=== PATIENT | male | born 1960 | race Caucasian/White ===

== ENCOUNTER 2020-04-07 11:00 | Outpatient (CLI) | payer BC, SELFPAY ==
--- NOTE | 2020-04-07 08:30 | DI.RAD_ITS ---
EXAM: XR ELBOW RT COMPLETE CLINICAL HISTORY: R elbow pain. TECHNIQUE: 2D digital imaging was performed. COMPARISON: No exams were available for comparison FINDINGS: BONES: No acute fracture is present. No bony destructive lesion is seen. There is a small subchondra l cyst in the capitellum. JOINTS: The elbow is normally aligned. No joint effusion is seen. SOFT TISSUE: Normal. IMPRESSION: Unremarkable radiographs of the right elbow. DATA REPOSITORY: RADIATION DOSE DELIVERED:
== END 2020-04-07 11:20 ==
PROVIDERS: PCP Family Medicine; Visit Provider Physician Assistant
DX: M25.521 Pain in right elbow (principal)
CPT/HCPCS: 73080

== ENCOUNTER 2021-01-27 10:45 | Outpatient (CLI) | payer BC, SELFPAY ==
--- NOTE | 2021-01-27 10:51 | DI.RAD_ITS ---
Exam(s) XR LUMBAR SPINE COMPLETE EXAM: XR LUMBAR SPINE COMPLETE CLINICAL HISTORY: eval low back pain and radiculopathy. TECHNIQUE: 2D digital imaging was performed. COMPARISON: No exams were available for comparison FINDINGS: BONES: No fracture or destructive lesion. Vertebral bodies are unremarkable. Mild facet hypertrophy identified. DISKS: Intervertebral disc spaces are maintained. Small endplate osteophytes. ALIGNMENT: Lumbar spinal alignment is within normal limits. SOFT TISSUE: Mild aortic calcification. IMPRESSION: Mild degenerative changes greatest at L4-5 and L5-S1. DATA REPOSITORY: RADIATION DOSE DELIVERED:
== END 2021-01-27 10:46 | disposition home or self-care (01) ==
LOC: DIORS 10:45
PROVIDERS: PCP Family Medicine; Referring Provider Family Medicine; Visit Provider Student in an Organized Health Care Education/Training Program
DX: M54.16 Radiculopathy, lumbar region (principal); M47.27 Other spondylosis with radiculopathy, lumbosacral region
CPT/HCPCS: 72110

== ENCOUNTER 2021-02-21 01:09 | Outpatient (CLI) | payer BC, SELFPAY ==
--- NOTE | 2021-02-21 06:45 | DI.MRI_ITS ---
Exam(s) MR LUMBAR SPINE WO EXAM: MR LUMBAR SPINE WO CLINICAL HISTORY: PAIN,lumbar radiculopathy, m54.16. TECHNIQUE: Multiplanar multisequence MRI of the Lumbar spine was performed. COMPARISON: CR XR LUMBAR SPINE COMPLETE from 01/27/2021 CR XR LUMBAR SPINE COMPLETE from 01/27/2021 FINDINGS: Bones: The last intervertebral disc space is designated the L5/S1 level for the numbering purpose of this examination. The vertebral body heights are well maintained. Alignment is satisfactory. There are mild degenerative endplate signal changes seen at L2-3, L4-5 and L5-S1. There is disc desiccation at L4-5 and L5-S1. There is a round area of decreased signal on both the T1 and T2 weighted images in the L3 vertebral body. There is no abnormal signal seen on the STIR images. Cord: The conus tip ends at the T12 level. It is of normal size and signal intensity. T12-L1: No disc herniations or bulges are present. No central spinal canal or neural foraminal stenos is. L1-2: No disc herniations or bulges are present. No central spinal canal or neural foraminal stenosis . L2-3: No disc herniations or bulges are present. No central spinal canal or neural foraminal stenosis . L3-4: No disc herniations or bulges are present. No central spinal canal or neural foraminal stenosis . L4-5: There is a moderate-sized left lateral disc herniation. There is mild narrowing of the central spinal canal. No right neural foraminal stenosis.Moderately severe left neural foraminal stenosis i s present. L5-S1: There is a small central disc herniation at L5-S1. No central spinal canal or neural foraminal stenosis. Soft tissues: The visualized SI joints and sacrum are well maintained. The paraspinal soft tissues ar e unremarkable. IMPRESSION: 1. Left lateral disc herniation at L4-5 causing moderately severe left neural foraminal stenosis. Th ere is also mild narrowing of the central spinal canal at this level. 2. Small central disc herniation at L5-S1. No central spinal canal or neural foraminal stenosis resu lts. 3. Nonspecific hypointense round signal in the L3 vertebral body. A postcontrast MRI of the lumbar s pine should be considered for further evaluation. DATA REPOSITORY:
== END 2021-02-21 01:29 ==
PROVIDERS: PCP Family Medicine; Visit Provider Student in an Organized Health Care Education/Training Program
DX: M54.16 Radiculopathy, lumbar region (principal); M51.16 Intervertebral disc disorders with radiculopathy, lumbar region; M51.17 Intervertebral disc disorders with radiculopathy, lumbosacral region
CPT/HCPCS: 72148